=== PATIENT | female | born 1970 | race Caucasian/White ===

== ENCOUNTER 2016-06-14 13:23 | Emergency (ER) | payer BC ==
[2016-06-14] MEDS ORDERED: IPRATROPIUM-ALBUTEROL 3 ML NEB INHALATION STA (14:33)
[2016-06-14] MEDS ORDERED: methylPREDNISolone SOD SUCCI 125 MG/2 ML VIAL IV STA (14:33)
[2016-06-14] MEDS ORDERED: SODIUM CHLORIDE 0.9% 1,000 ML IV ONE (14:33)
--- NOTE | 2016-06-14 15:01 | XR ---
EXAMINATION TYPE: XR chest 2V DATE OF EXAM: 06/14/2016 2:46 PM COMPARISON: 08/08/2015 HISTORY: 46-year-old female with cough TECHNIQUE: PA and lateral views FINDINGS: The cardiomediastinal silhouette, aorta, and pulmonary vasculature are within normal limits. Intersti tial prominence is increased and there are central peribronchial cuffing. No consolidation or pleural effusion. IMPRESSION: Increased interstitial prominence and peribronchial cuffing. Correlate for bronchitis or chronic asth ma.
[2016-06-14 15:15] LABS: Basophils # (A) 0.1 k/uL (0-0.2); Basophils % (A) 1 %; CH 30.9; CHCM 34.6; Eosinophils # (A) 0.2 k/uL (0-0.7); Eosinophils % (A) 2 %; HCT 45.1 % (34.0-46.0); HDW 2.59; HGB 15.2 gm/dL (11.4-16.0); Luc # (Auto) 0.15; Luc % (Auto) 2; Lymphocytes # (A) 1.7 k/uL (1.0-4.8); Lymphocytes % (A) 17 %; MCH 30.2 pg (25.0-35.0); MCHC 33.7 g/dL (31.0-37.0); MCV 89.7 fL (80.0-100.0); Mean Platelet Volume 8.9; Monocytes # (A) 0.5 k/uL (0-1.0); Monocytes % (A) 5 %; Neutrophils # (A) 7.4 k/uL (1.3-7.7); Neutrophils % (A) 74 %; RBC 5.02 m/uL (3.80-5.40); RDW 12.9 % (11.5-15.5); WBC 9.9 k/uL (3.8-10.6); WBC (Perox) 10.71
[2016-06-14 15:28] LABS: ALT 35 U/L (9-52); AST 35 U/L (14-36); Alkaline Phosphatase 62 U/L (38-126); Anion Gap 11 mmol/L; Blood Urea Nitrogen 15 mg/dL (7-17); Calcium 10.1 mg/dL (8.4-10.2); Carbon Dioxide 27 mmol/L (22-30); Chloride 105 mmol/L (98-107); Glucose 95 mg/dL (74-99); Non-African American GFR(MDRD) >60 (>60 ml/min/1.73 sqM); Sodium 143 mmol/L (137-145); Total Bilirubin 0.6 mg/dL (0.2-1.3); Total Protein 7.9 g/dL (6.3-8.2)
[2016-06-14 15:29] LABS: Potassium 4.8 mmol/L (3.5-5.1)
--- NOTE | 2016-06-14 15:31 | ED ---
General Adult HPI - General Chief complaint: Upper Respiratory Infection Stated complaint: SOB Time Seen by Provider: 06/14/16 14:00 Source: patient Mode of arrival: ambulatory Limitations: no limitations - History of Present Illness Initial comments: 46-year-old female with a past medical history of chronic asthma with episodes of status asthmaticus presented for evaluation of 2 weeks of URI symptoms with associated shortness of breath and chest tightness. She states for the first week she was taking Mucinex without any improvement in her symptoms. Last Thursday she was seen by her primary care physician Dr. Young who started her on an antibiotic (an unknown cephalosporin) and a short course of steroids for 6 days. She is also been taking her albuterol inhaler and nebulized breathing treatments 3 times a day and has intermittent relief of her symptoms but they return after the treatments were off. 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 She denies any associated fevers chills nausea or vomiting but does admit to audible wheezing that she feels is worse on the left compared to the right. She has a dry cough and states she has no phlegm production. - Related Data Home Medications Medication Instructions Recorded Confirmed Albuterol Inhaler [Ventolin Hfa 1 - 2 puff INHALATION RT-Q6H PRN 06/14/16 Inhaler] Albuterol Nebulized [Ventolin 2.5 mg INHALATION RT-Q4H PRN 06/14/16 06/14/16 Nebulized] Cefuroxime Axetil [Ceftin] 500 mg PO BID 06/14/16 06/14/16 methylPREDNISolone Dose Pack See Taper PO DAILY 06/14/16 06/14/16 [Medrol Dose Pack] Allergies Allergy/AdvReac Type Severity Reaction Status Date / Time ciprofloxacin HCl Allergy Unknown Dyspnea,wheezing, Verified 06/14/16 15:16 [From Cipro] anxiety, agitation moxifloxacin HCl Allergy Unknown Dyspnea, Verified 06/14/16 15:16 [From Avelox] wheezing, anxiety, agitation Sulfa (Sulfonamide Allergy Unknown Dyspnea, Verified 06/14/16 15:16 Antibiotics) wheezing , Anxiety, agitation ciprofloxacin [From Cipro] Allergy Dyspnea, Verified 06/14/16 15:16 wheezing, anxiety, agitation levofloxacin [From Levaquin] Allergy Dyspnea, Verified 06/14/16 15:16 wheezing, anxiety, agitation adhesive AdvReac Unknown Red skin Verified 06/14/16 15:16 Review of Systems ROS Statement: Those systems with pertinent positive or pertinent negative responses have been documented in the HPI. ROS Other: All systems not noted in ROS Statement are negative. Constitutional: Denies: fever, chills, weakness, weight change Eyes: Denies: eye pain, eye discharge, vision change ENT: Denies: ear pain, throat pain Respiratory: Reports: cough (Dry), dyspnea, wheezes. Denies: hemoptysis, stridor Cardiovascular: Reports: chest pain, dyspnea on exertion. Denies: palpitations , orthopnea, edema, syncope Endocrine: Reports: fatigue. Denies: polyuria Gastrointestinal: Denies: abdominal pain, nausea, vomiting Genitourinary: Denies: urgency, dysuria Musculoskeletal: Denies: back pain, joint swelling, arthralgia Skin: Denies: rash, lesions Neurological: Denies: headache, weakness Psychiatric: Denies: anxiety, depression Past Medical History Past Medical History: Asthma Additional Past Medical History / Comment(s): Respiratory failure, Tracheal stenosis History of Any Multi-Drug Resistant Organisms: None Reported Additional Past Surgical History / Comment(s): Tracheostomy Past Psychological History: No Psychological Hx Reported Smoking Status: Former smoker Past Alcohol Use History: Daily, Occasional Past Drug Use History: None Reported General Exam Limitations: no limitations General appearance: alert, in no apparent distress Head exam: Present: atraumatic, normocephalic Eye exam: Present: normal appearance, EOMI ENT exam: Present: normal exam, normal oropharynx, mucous membranes moist. Absent: mucous membranes dry Neck exam: Present: normal inspection, full ROM. Absent: tenderness, meningismus Respiratory exam: Present: wheezes. Absent: respiratory distress, chest wall tenderness, accessory muscle use, decreased breath sounds, prolonged expiratory Cardiovascular Exam: Present: regular rate, normal rhythm. Absent: bradycardia , tachycardia, irregular rhythm GI/Abdominal exam: Present: soft. Absent: distended, tenderness, guarding, rebound Rectal exam: Present: deferred Extremities exam: Present: normal inspection, full ROM. Absent: tenderness Back exam: Present: normal inspection, full ROM. Absent: tenderness, CVA tenderness (R) Neurological exam: Present: alert, oriented X3, normal gait Psychiatric exam: Present: normal affect, normal mood Skin exam: Present: warm, dry, intact Course Vital Signs 06/14/16 06/14/16 06/14/16 13:34 14:21 14:26 Temperature 98.1 F Pulse Rate 75 72 Respiratory 20 14 15 Rate Blood Pressure 177/86 186/110 O2 Sat by Pulse 97 98 Oximetry 06/14/16 06/14/16 06/14/16 16:00 16:33 16:45 Temperature 97.4 F L Pulse Rate 66 83 95 Respiratory 14 Rate Blood Pressure 158/77 O2 Sat by Pulse 98 Oximetry 06/14/16 17:29 Temperature 98.2 F Pulse Rate Respiratory Rate Blood Pressure O2 Sat by Pulse Oximetry EKG Findings - EKG Comments: EKG Findings:: EKG shows normal sinus rhythm with a ventricular rate of 70, LEEANN 154, QRS 92, QT/QTC 396/427. This is compared with EKG from 08/08/2015 and there are no significant changes from that time. Medical Decision Making - Medical Decision Making 46-year-old female with past medical history of asthma and tracheostenosis presented for evaluation of URI symptoms for the last 2 weeks worsening the last couple days. She is tried antibiotics and steroids with mild improvement and states that her albuterol inhaler and nebulized breathing treatments also provide some minimal relief but symptoms returned. On physical examination patient does have wheezing bilaterally without accessory muscle use. She is afebrile upon presentation and does have an intermittent cough. We 'll obtain baseline labs, influenza swab, and provide steroids and breathing treatment. The patient states that she does have a past medical history of positive d-dimer is that of the negative for pulmonary emboli. She is negative for PERC criteria and therefor will not pursue PE work up. Labs revealed no significant abnormalities, chest x-ray showed no acute process but did note peribronchial cuffing and indications of chronic asthma. On reevaluation the patient had improvement in respiratory status and wheezing had resolved. Through shared decision making it was determined that she would be discharged with instructions to keep her appointment with her traffic supervisor on Thursday. Further advised to return to this facility if her symptoms should worsen or persist between now and her appointment. The patient acknowledged an understanding of this information and agreed with this plan of care. - Lab Data Result diagrams: 06/14/16 15:00 06/14/16 15:00 Lab Results 06/14/16 06/14/16 06/14/16 Range/Units 15:00 15:00 15:00 WBC 9.9 (3.8-10.6) k/uL RBC 5.02 (3.80-5.40) m/uL Hgb 15.2 (11.4-16.0) gm/dL Hct 45.1 (34.0-46.0) % MCV 89.7 (80.0-100.0) fL MCH 30.2 (25.0-35.0) pg MCHC 33.7 (31.0-37.0) g/dL RDW 12.9 (11.5-15.5) % Plt Count 202 (150-450) k/uL Neutrophils % 74 % Lymphocytes % 17 % Monocytes % 5 % Eosinophils % 2 % Basophils % 1 % Neutrophils # 7.4 (1.3-7.7) k/uL Lymphocytes # 1.7 (1.0-4.8) k/uL Monocytes # 0.5 (0-1.0) k/uL Eosinophils # 0.2 (0-0.7) k/uL Basophils # 0.1 (0-0.2) k/uL Sodium 143 (137-145) mmol/L Potassium 4.8 (3.5-5.1) mmol/L Chloride 105 (98-107) mmol/L Carbon Dioxide 27 (22-30) mmol/L Anion Gap 11 mmol/L BUN 15 (7-17) mg/dL Creatinine 0.71 (0.52-1.04) mg/dL Est GFR (MDRD) Af Amer >60 (>60 ml/min/1.73 sqM) Est GFR (MDRD) Non-Af >60 (>60 ml/min/1.73 sqM) Glucose 95 (74-99) mg/dL Calcium 10.1 (8.4-10.2) mg/dL Total Bilirubin 0.6 (0.2-1.3) mg/dL AST 35 (14-36) U/L ALT 35 (9-52) U/L Alkaline Phosphatase 62 (38-126) U/L Troponin I (0.000-0.034) ng/mL NT-Pro-B Natriuret Pep pg/mL Total Protein 7.9 (6.3-8.2) g/dL Albumin 4.6 (3.5-5.0) g/dL Lipase 74 (23-300) U/L Influenza Type A RNA Not Detected (Not Detectd) Influenza Type B (PCR) Not Detected (Not Detectd) 06/14/16 06/14/16 Range/Units 15:00 15:00 WBC (3.8-10.6) k/uL RBC (3.80-5.40) m/uL Hgb (11.4-16.0) gm/dL Hct (34.0-46.0) % MCV (80.0-100.0) fL MCH (25.0-35.0) pg MCHC (31.0-37.0) g/dL RDW (11.5-15.5) % Plt Count (150-450) k/uL Neutrophils % % Lymphocytes % % Monocytes % % Eosinophils % % Basophils % % Neutrophils # (1.3-7.7) k/uL Lymphocytes # (1.0-4.8) k/uL Monocytes # (0-1.0) k/uL Eosinophils # (0-0.7) k/uL Basophils # (0-0.2) k/uL Sodium (137-145) mmol/L Potassium (3.5-5.1) mmol/L Chloride (98-107) mmol/L Carbon Dioxide (22-30) mmol/L Anion Gap mmol/L BUN (7-17) mg/dL Creatinine (0.52-1.04) mg/dL Est GFR (MDRD) Af Amer (>60 ml/min/1.73 sqM) Est GFR (MDRD) Non-Af (>60 ml/min/1.73 sqM) Glucose (74-99) mg/dL Calcium (8.4-10.2) mg/dL Total Bilirubin (0.2-1.3) mg/dL AST (14-36) U/L ALT (9-52) U/L Alkaline Phosphatase (38-126) U/L Troponin I <0.012 (0.000-0.034) ng/mL NT-Pro-B Natriuret Pep 103 pg/mL Total Protein (6.3-8.2) g/dL Albumin (3.5-5.0) g/dL Lipase (23-300) U/L Influenza Type A RNA (Not Detectd) Influenza Type B (PCR) (Not Detectd) Disposition Clinical Impression: Asthma exacerbation, URI (upper respiratory infection) Disposition: HOME SELF-CARE Condition: Stable Instructions: Upper Respiratory Infection (ED), Asthma (ED), Moderate and Severe Persistent Asthma (ED) Referrals: Petar Young MD [Primary Care Provider] - 1-2 days Time of Disposition: 17:03
[2016-06-14 16:55] VITALS: BP 158/77; PULSE 95; RESP 14
[2016-06-14 17:32] VITALS: TEMP 98.2
== END 2016-06-14 17:35 | disposition home or self-care (01) ==
LOC: EC 13:23
DX: J45.901 Unspecified asthma with (acute) exacerbation (principal); J06.9 Acute upper respiratory infection, unspecified; Z88.1 Allergy status to other antibiotic agents; Z88.2 Allergy status to sulfonamides; Z87.09 Personal history of other diseases of the respiratory system; Z87.891 Personal history of nicotine dependence
CPT/HCPCS: 36415; 94640; 93005; 83880; 80053; 83690; 84484; 85025; 87502; 71020; 99284; 96374; J2930